=== PATIENT | male | born 1995 | race Native Hawaiian/Other Pacific Islander ===

== ENCOUNTER 2017-07-24 00:48 | Emergency (ER) | payer BC, OTHER ==
[~2017-07-24] VITALS: Ht 167.6 cm; Wt 127.9 kg
[2017-07-24] MEDS ORDERED: LOSARTAN POTASSIUM 25 MG TAB (01:17)
--- NOTE | 2017-07-24 01:45 | NUR ---
DR. THORPE AT BEDSIDE FOR MSE.
[2017-07-24 03:23] VITALS: BP 134/85
--- NOTE | 2017-07-24 03:23 | NUR ---
Patient discharged to home in stable conditon. Written and verbal after care instructions given. Patient verbalizes understanding of instructions. PATIENT LEFT WITH STABLE GAIT.
== END 2017-07-24 03:26 | disposition home or self-care (01) ==
LOC: ER 00:55
DX: R51 Headache (principal); I10 Essential (primary) hypertension; J45.909 Unspecified asthma, uncomplicated
CPT/HCPCS: 70450; 99284; A4663

== ENCOUNTER 2018-12-31 12:55 | Emergency (ER) | payer BC, OTHER ==
[~2018-12-31] VITALS: Ht 172.7 cm; Wt 117.9 kg
[~2018-12-31 12:55] MED LIST: LOSARTAN POTASSIUM 25 MG TAB
--- NOTE | 2018-12-31 13:35 | NUR ---
Patient discharged to home in stable conditon. Written and verbal after care instructions given. Patient verbalizes understanding of instructions.
== END 2018-12-31 13:36 | disposition home or self-care (01) ==
LOC: ER 12:55
DX: S23.3XXA Sprain of ligaments of thoracic spine, initial encounter (principal); M54.12 Radiculopathy, cervical region; I10 Essential (primary) hypertension; J45.909 Unspecified asthma, uncomplicated; Z79.899 Other long term (current) drug therapy; X50.0XXA Overexertion from strenuous movement or load, initial encounter; Y93.89 Activity, other specified; Y92.89 Other specified places as the place of occurrence of the external cause; Y99.8 Other external cause status
CPT/HCPCS: A4663